=== PATIENT | female | born 1945 | race Two or more races ===

== ENCOUNTER 2020-08-18 05:00 | Day surgery (SDC) | payer OTHER | END 2020-08-18 10:30 | disposition home or self-care (01) | LOC: AMB-ENDOS 05:00 | PROVIDERS: ATTEND Colon & Rectal Surgery | DX: D12.5 Benign neoplasm of sigmoid colon (principal); K64.1 Second degree hemorrhoids; Z20.822 Contact with and (suspected) exposure to COVID-19 ==